=== PATIENT | female | born 1985 | race Caucasian/White ===

== ENCOUNTER 2024-11-22 13:52 | Outpatient (CLI) | payer OTHER, SELFPAY ==
--- NOTE | ~2024-11-22 | US_ITS ---
EXAMINATION: US arterial ankle brachial ind DATE: 11/22/2024 14:25 INDICATION: Peripheral vascular disease TECHNIQUE: Segmental pressures and plethysmographic and Doppler waveforms of the brachial and lower extremity arteries were obtained. COMPARISON: None. FINDINGS: Right and left brachial artery pressures of 112 mm Hg and 118 mm Hg, respectively, are concordant (normal difference <= 30 mmHg). The right ankle-brachial index (NURY) is 0.98 (normal >= 0.9-1.0). The right great toe-brachial index (TBI) is 0.81 (normal >= 0.65). Arterial Doppler waveforms are biphasic with brisk systolic upstrokes at both right posterior tibial and dorsalis pedis arteries. The left NURY is 1.02. The left TBI is 0.74. Arterial Doppler waveforms are biphasic with brisk systolic upstrokes at both left posterior tibial and dorsalis pedis arteries. IMPRESSION: 1. No significant arterial occlusive disease with borderline right-sided and normal left-sided ABIs and normal bilateral TBIs. Reviewed, dictated and finalized at location A. IMPRESSION: 1. No significant arterial occlusive disease with borderline right-sided and no rmal left-sided ABIs and normal bilateral TBIs.
--- OUTSIDE RECORDS SUMMARY | 2024-11-22 14:06 | XMS_ITS | Clinical Summary ---
Author Organization [facility] Address [address] [place] [address] Care Team Providers Care Vice President Of Product Marketing Name Role Phone Noelle Watkins SENIOR DYNAMICS CRM DEVELOPER-PUBLIC ADDRESS TECHNICIAN Primary Care Provider Source Comments [facility],non-owned Affiliates and Associated Physician Practices is amultiple site organization consisting of ambulatory clinics and hospital sitesin [place], [place], [place] and [place]. This disclosure is being madepursuant to the Care Everywhere program and may not contain all information available regarding this patient. Last updated 17.[facility] Allergies No known active allergies Medications * Be aware that medications may not be up to date on this document. Alwaysverify current medications with the patient. varenicline (CHANTIX STARTING MONTH ) 0.5 MG X 11 & 1 MG X 42 tabletsIndicati ons:Smoking Cessation Therapy Take by mouth as directed Take 0.5 mg daily days 1-3, twice daily days 4-7, then 1 mg twice daily Reasons: Treatment to Stop Smoking Active Active Problems Problem Noted Date Diagnosed Date Smoker 07/17/2021 Venous insufficiency 07/17/2021 Pain of right foot 07/17/2021 Lumbar radiculopathy 07/17/2021 Pain in thoracic spine 07/17/2021 Social History Tobacco Use Types Packs/Day Years Used Date Smoking Tobacco: Every Day Cigarettes Smokeless Tobacco: Never Alcohol Use Standard Drinks/Week Comments Yes 0 (1 standard drink = 0.6 oz pur e alcohol) Comments Unknown Sex and Gender Information Value Date Recorded Sex Assigned at Not on file Legal Sex Female 8:06 AM CDT Gender Identity Not on file Sexual Orientation Not on file Last Filed Vital Signs Vital Sign Reading Time Taken Comments Blood Pressure 122/80 07/22/2021 11:06 AM CDT Pulse 84 07/22/2021 11:06 AM CDT Temperature 36.7 C (98.1 F) 07/22/2021 11:06 AM CDT Respiratory Rate 18 07/22/2021 11:06 AM CDT Oxygen Saturation 99% 07/22/2021 11:06 AM CDT Inhaled Oxygen Concentration - - Weight 88.5 kg (195 lb) 07/22/2021 11:06 AM CDT Height 162.6 cm (5' 4) 07/22/2021 11:06 AM CDT Body Mass Index 33.47 07/22/2021 11:06 AM CDT Plan of Treatment Health Maintenance Due Date Last Done Comments LIPID TESTING 1984 MAMMOGRAM 1984 HIV SCREENING 1999 HEPATITIS C SCREENING 03/16/2002 DTAP/TDAP/TD VACCINES (1 - Tdap) 2003 HEPATITIS B VACCINE (1 of 3 - 19+ 3-dose series) 2003 HPV VACCINE (1 - 3-dose SCDM series) 2011 DEPRESSION SCREENING 03/02/2024 COVID-19 VACCINE (2 - 2024-2 6 season) 2024 10/10/2020 INFLUENZA VACCINE (#1) 2024 ZOSTER VACCINE (1 of 2) 2034 HIB VACCINE Aged Out No longer eligi ble based on patient's age to complete this topic MENINGOCOCCAL (Group B) VACC INE SHARED DECISION-MAKING Aged Out No longer eligibl e based on patient's age to complete this topic MENINGOCOCCAL GROUPS A/C/Y/W VACCINE Aged Out No longer eligible b ased on patient's age to complete this topic PNEUMOCOCCAL VACCINE Aged Out No long er eligible based on patient's age to complete this topic Insurance [facility] MEDICAID Care Teams Vice President Of Product Marketing Relationship Specialty Start Date End Date Noelle Watkins APRN-[address] [place] [address] PCP - General Nurse Practitioner 07/22/21
== END 2024-11-22 13:53 | disposition home or self-care (01) ==
PROVIDERS: PCP Registered Nurse; Visit Provider Registered Nurse
DX: I73.9 Peripheral vascular disease, unspecified (principal); I83.93 Asymptomatic varicose veins of bilateral lower extremities
CPT/HCPCS: 93922